=== PATIENT | female | born 2000 | race Caucasian/White ===

== ENCOUNTER 2021-06-17 09:47 | Outpatient (CLI) | payer MEDICAID, SELFPAY ==
--- NOTE | 2021-06-17 09:59 | US_ITS ---
WS: [id number] LIMITED OBSTETRICAL ULTRASOUND HISTORY: SUPERVISION NORMAL FIRST COMPARISON: None available. Presentation: Breech Cervix: Closed and normal length. Cervical length 4.2 cm. Placenta: Posterior, no previa or abruption. Placenta ends 2.4 cm above the internal cervical os. Grade: 0 HEART: FHR of 160 BPM. measurements: BPD = 3.6 cm = 17w0d HC = 13.8 cm = 17w1d AC = 11.0 cm = 16w6d FL = 2.2 cm = 16w5d Amniotic fluid: Normal. EFW: 170 g; %. AGA by ultrasound: 17w0d LAMIN by ultrasound: 11/25/2021 US/US OB limited [id number] IMPRESSION: 1. Single intrauterine gestation of 17 weeks 0 days with an EDC of 11/25/2021. 2. Posterior placenta.
== END 2021-06-17 09:48 | disposition home or self-care (01) ==
PROVIDERS: PCP Family Medicine; Visit Provider Family Medicine
DX: Z34.02 Encounter for supervision of normal first pregnancy, second trimester; Z3A.17 17 weeks gestation of pregnancy
CPT/HCPCS: 76815

== ENCOUNTER 2021-07-21 10:15 | Outpatient (CLI) | payer MEDICAID, SELFPAY ==
--- NOTE | 2021-07-21 10:26 | US_ITS ---
WS: [id number] OBSTETRICAL ULTRASOUND COMPLETE HISTORY: ANATOMY CHECK COMPARISON: 06/17/2021 Single intrauterine gestation in breech presentation. Cervix is Closed and normal length. Cervical length is 4.0 cm. Normal amount of amniotic fluid surrounds the fetus. Placenta: Posterior, no previa or abruption. Placenta grade 0 Heart: 147 BPM. Four chambers are identified. Outflow tracts are visualized but limited. No abnormali ty is detected. Fetus was very active for this examination. Anatomy: Intracranial structures and spine are normal. kidneys, stomach and urinary bladd er are unremarkable. Abdominal wall, three-vessel cord and cord insertion site are normal. 4 extremities are present. profile: Unremarkable. Gender: Male. measurements: BPD = 5.4 cm = 22w2d HC = 19.9 cm = 22w0d AC = 17.9 cm = 22w6d FL = 3.6 cm = 21w4d EFW: 486 g. Biometry is internally concordant. AGA by ultrasound: 22w0d LAMIN by ultrasound: 11/24/2021 US/US OB >= 14 weeks fetus [id number] IMPRESSION: 1. Single intrauterine gestation of 22w0d with an LAMIN of 11/24/2021. Appropria te growth since the prior ultrasound. 2. Unremarkable screening survey of anatomy. Limited evaluation of the h eart and outflow tracts due to active fetus. No abnormality identified.
== END 2021-07-21 10:16 | disposition home or self-care (01) ==
PROVIDERS: PCP Family Medicine; Visit Provider Family Medicine
DX: Z36.89 Encounter for other specified antenatal screening (principal)
CPT/HCPCS: 76805

== ENCOUNTER 2021-08-31 07:09 | Outpatient (CLI) | payer MEDICAID, SELFPAY ==
--- NOTE | 2021-08-31 07:17 | US_ITS ---
WS: [id number] ULTRASOUND OB FOCUSED HISTORY: SCREENING FOR CONGENITAL CARDIAC ABNORMALITIES COMPARISON: 07/21/2021 Single intrauterine gestation in cephalic position. Cervix is closed measuring 3.6 cm. Placenta is po sterior, no previa or abruption. Normal amniotic fluid. heart rate at 147 BPM. Four-chamber heart. Outflow tracts are better visualized today. No abnormality is identified. US/[place] [id number] IMPRESSION: 1. Follow-up imaging of the anatomy demonstrates no abnormality. 2. Normal cardiac activity.
== END 2021-08-31 07:10 | disposition home or self-care (01) ==
LOC: RAD 07:09
PROVIDERS: PCP Family Medicine; Visit Provider Family Medicine
DX: Z34.80 Encounter for supervision of other normal pregnancy, unspecified trimester (principal); Z36.83 Encounter for fetal screening for congenital cardiac abnormalities
CPT/HCPCS: 76816

== ENCOUNTER 2021-09-30 11:20 | Outpatient (CLI) | payer MEDICAID, SELFPAY ==
[2021-09-30 11:26] VITALS: BP 135/75; PULSE 114; RESP 18; TEMP 36.9
[2021-09-30 11:34] VITALS: BMI 40.0
[2021-09-30 11:40] VITALS: BP 135/75; PULSE 114; TEMP 36.9
[2021-09-30 11:54] VITALS: BP 132/71; PULSE 107
[2021-09-30 11:59] LABS: Add Urine Microscopic? NO; Charge for UA Resulting for Rev
[2021-09-30 12:04] LABS: Basophils % 0.1 %; Eosinophils # 0.1 10^3/uL (0.0-0.8); Eosinophils % 0.5 %; Hematocrit 34.9 % (37.0-47.0); Hemoglobin 12.3 g/dL (11.5-15.3); Lymphocytes # 2.2 10^3/uL (0.8-4.8); Lymphocytes % 16.2 %; Mean Corpuscular HGB Conc 35.2 g/dL (30.0-36.0); Mean Corpuscular Hemoglobin 30.2 pg (28.0-34.0); Mean Corpuscular Volume 85.7 fl (81-99); Mean Platelet Volume 11.2 fL (7.4-10.4); Monocytes # 0.6 10^3/uL (0.2-0.9); Monocytes % 4.5 %; Neutrophils # 10.52 10^3/uL (1.8-7.7); Neutrophils % 78.5 %; Nucleated Red Blood Cells % 0 %; Platelet Count 274 10^3/cmm (130-400); Red Blood Count 4.07 10^6/uL (4.1-5.3); Red Cell Distribution Width 11.9 % (12.1-15.1); White Blood Count 13.4 10^3/uL (4.0-10.0)
[2021-09-30 12:09] VITALS: BP 115/57; PULSE 100
[2021-09-30 12:18] LABS: Protein Urine Neg (Negative); Specific Gravity, Urine 1.025 (1.005-1.030); Urine Appearance Clear (CLEAR); Urine Color Yellow (Yellow); pH Urine 6 (5-7)
[2021-09-30 12:19] LABS: Bilirubin Urine Neg (Negative); Blood Urine Neg (Negative); Glucose Urine UA Norm (Normal); Ketones Urine 2+ (Negative); Leukocyte Esterase Urine Negative (Negative); Nitrate Urine Negative (Negative); Urobilinogen Urine 1 mg/dL (Negative)
[2021-09-30 12:24] VITALS: BP 100/57; PULSE 108
[2021-09-30 12:31] LABS: Alanine Aminotransferase 9 U/L (0-33); Alkaline Phosphatase 98 IU/L (35-105); Anion Gap 18.5 (5-19); Aspartate Amino Transferase 12 U/L (0-32); Blood Urea Nitrogen 10 mg/dL (6-20); Calcium 9.4 mg/dL (8.5-10.5); Carbon Dioxide 20 mmol/L (22-29); Chloride 100 mmol/L (98-107); Glomerular Filtration Rate 155.7 mL/min (90-130); Glucose 138 mg/dL (65-115); Osmolality Calculated 281 mOsm/kg (285-295); Potassium 3.5 mmol/L (3.5-5.1); Sodium 135 mmol/L (136-145); Total Bilirubin 0.2 mg/dL (0.15-1.2); Uric Acid 4.4 mg/dL (2.4-5.7)
[2021-09-30 12:36] LABS: Urine Creatinine 156 mg/dL (28-217); Urine Protein Random 15 mg/dL
[2021-09-30 12:39] VITALS: BP 90/53; PULSE 108
== END 2021-09-30 12:59 | disposition home or self-care (01) ==
LOC: OPOB 11:23 → OBGYN 11:24
PROVIDERS: PCP Family Medicine; Visit Provider Family Medicine
DX: O16.9 Unspecified maternal hypertension, unspecified trimester (principal); Z3A.00 Weeks of gestation of pregnancy not specified
CPT/HCPCS: 36415; 59025; 80053; 81003; 82570; 84156; 84550; 85025; 99211

== ENCOUNTER 2021-10-21 12:15 | Outpatient (CLI) | payer MEDICAID, SELFPAY ==
[2021-10-21 12:15] VITALS: BMI 41.1
[2021-10-21 12:23] VITALS: RESP 18; TEMP 36.5
[2021-10-21 12:30] VITALS: BP 128/64; PULSE 89
[2021-10-21 12:50] VITALS: BP 109/58; PULSE 97
[2021-10-21 13:05] LABS: Basophils % 0.2 %; Eosinophils # 0.1 10^3/uL (0.0-0.8); Eosinophils % 0.5 %; Hematocrit 36.8 % (37.0-47.0); Hemoglobin 12.5 g/dL (11.5-15.3); Lymphocytes # 2.1 10^3/uL (0.8-4.8); Lymphocytes % 16.2 %; Mean Corpuscular Hemoglobin 29.7 pg (28.0-34.0); Mean Corpuscular Volume 87.4 fl (81-99); Mean Platelet Volume 12.2 fL (7.4-10.4); Monocytes # 0.6 10^3/uL (0.2-0.9); Monocytes % 4.2 %; Neutrophils # 10.27 10^3/uL (1.8-7.7); Neutrophils % 78.6 %; Nucleated Red Blood Cells % 0 %; Platelet Count 284 10^3/cmm (130-400); Red Blood Count 4.21 10^6/uL (4.1-5.3); Red Cell Distribution Width 12.1 % (12.1-15.1); White Blood Count 13.1 10^3/uL (4.0-10.0)
[2021-10-21 13:10] VITALS: BP 115/70; PULSE 100
[2021-10-21 13:29] LABS: Alanine Aminotransferase 10 U/L (0-33); Alkaline Phosphatase 118 IU/L (35-105); Aspartate Amino Transferase 18 U/L (0-32); Blood Urea Nitrogen 11 mg/dL (6-20); Calcium 9.7 mg/dL (8.5-10.5); Carbon Dioxide 19 mmol/L (22-29); Chloride 101 mmol/L (98-107); Globulin 3.2 g/dL (1.3-4.6); Glomerular Filtration Rate 201.5 mL/min (90-130); Glucose 119 mg/dL (65-115); Osmolality Calculated 283 mOsm/kg (285-295); Sodium 136 mmol/L (136-145); Total Bilirubin 0.2 mg/dL (0.15-1.2); Total Protein 7.2 g/dL (6.6-8.7); Uric Acid 4.9 mg/dL (2.4-5.7)
[2021-10-21 13:30] VITALS: BP 122/68; PULSE 96
[2021-10-21 13:33] LABS: Anion Gap 19.6 (5-19); Potassium 3.6 mmol/L (3.5-5.1)
[2021-10-21 13:35] LABS: Add Urine Microscopic? YES; Bilirubin Urine Neg (Negative); Blood Urine Neg (Negative); Glucose Urine UA Norm (Normal); Ketones Urine 2+ (Negative); Leukocyte Esterase Urine 1+ (Negative); Nitrate Urine Negative (Negative); Protein Urine Neg (Negative); Specific Gravity, Urine 1.025 (1.005-1.030); Urine Appearance Cloudy (CLEAR); Urine Color Yellow (Yellow); Urobilinogen Urine 1 mg/dL (Negative); pH Urine 5 (5-7)
[2021-10-21 13:36] LABS: Add Urine Culture? Yes; Bacteria Urine 2+ /hpf; Squamous Epithelial Cell Urine 25-40 /hpf (0-5)
[2021-10-21 13:43] LABS: Urine Creatinine 183 mg/dL (28-217)
[2021-10-21 13:45] LABS: UPRO/UCREAT Ratio 0.15 mg/mg CR; Urine Protein Random 27 mg/dL
[2021-10-21 13:50] VITALS: BP 110/64; PULSE 88
== END 2021-10-21 14:05 | disposition home or self-care (01) ==
LOC: OPOB 12:19 → OBGYN 12:19
PROVIDERS: PCP Family Medicine; Visit Provider Family Medicine
DX: O16.9 Unspecified maternal hypertension, unspecified trimester (principal); Z3A.00 Weeks of gestation of pregnancy not specified
CPT/HCPCS: 36415; 59025; 80053; 81001; 82570; 84156; 84550; 85025; 87086; 99211

== ENCOUNTER 2021-10-31 12:00 | Inpatient (IN) | payer OTHER, MEDICAID, SELFPAY ==
[2021-10-31] VITALS (39 sets, daily range): BP systolic 104–161; BP diastolic 58–88; PULSE 72–105; RESP 18; TEMP 36.3; BMI 41.7
[2021-10-31] MEDS: dextrose 5%-lactated ringers 1,000 ML 125 ML IV (12:56)
[2021-10-31] MEDS: ampicillin 2,000 MG in sodium chloride 0.9% (plus) 50 ML 100 MG IV (12:57)
[2021-10-31] MEDS: ampicillin 1,000 MG in sodium chloride 0.9% (plus) 50 ML 100 MG IV ×2 (16:13→20:18)
[2021-10-31 17:59] LABS: Basophils % 0.3 %; Eosinophils # 0.1 10^3/uL (0.0-0.8); Eosinophils % 0.4 %; Hemoglobin 12.7 g/dL (11.5-15.3); Lymphocytes # 1.6 10^3/uL (0.8-4.8); Mean Corpuscular HGB Conc 33.4 g/dL (30.0-36.0); Mean Corpuscular Hemoglobin 29.2 pg (28.0-34.0); Mean Corpuscular Volume 87.4 fl (81-99); Mean Platelet Volume 12.8 fL (7.4-10.4); Monocytes # 0.7 10^3/uL (0.2-0.9); Monocytes % 5.8 %; Neutrophils # 9.62 10^3/uL (1.8-7.7); Neutrophils % 80.2 %; Nucleated Red Blood Cells % 0 %; Platelet Count 296 10^3/cmm (130-400); Red Blood Count 4.35 10^6/uL (4.1-5.3); Red Cell Distribution Width 12.2 % (12.1-15.1)
--- NOTE | 2021-10-31 18:25 | P.HP_ITS ---
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 Thought back pain was from sleeping on the couch last night. She reports normal movement, no LOF, no cramping, no vaginal bleeding. Good care. Taking vitamins and 81mg ASA for pre-eclampsia prev ention due to multiple moderate risk factors. Present Details : 1 Para: 0 Date of Last Menstrual Period: 02/20/21 Calculated Date of Delivery: 11/27/21 Gestational Age Based on Last Menstrual Period: 36 care: good care Other Details: 06/17/21 US: posterior placenta 2.4cm above internal os, grade0, IUP 17wk0d 07/22/21 US: Unremarkable anatomy, limited heart and outflow tracts due to activity, appropriate growth, normal amniotic fluid, posterior placenta 08/31/21 US: normal anatomy including normal outlow tracts 10/14/21 US: Weight 5lbs 4oz, symmetrical growth, CHRISTY 17, posterior placenta, cephalic, 34w3d measurement- done at [facility] Labs Blood type OB HPI: B (+) positive Rubella: Immune RPR: Negative GBS: Unknown Other Lab Information: Ab neg, Hep B neg, RPR NR, RI, HIV neg, Initial H/H 12.9/38.4, Pap NILM, GC/Chlam neg, UCx neg Repeat H/H 11.8/34.9 1hr GTT passed Review of Systems Const: Denies: fever(s) Card: Denies: chest pain Resp: Denies: dyspnea GI: Denies: abdominal pain : Reports: vaginal discharge; Denies: genital lesions, genital pruritis or vaginal bleeding Musc: Reports: back pain Medications/Allergies Home Medications Medication Instructions Recorded Confirmed Last Taken Type aspirin 81 mg chewable tablet 81 mg PO DAILY 09/30/21 09/30/2109/30/22 History prenat.vits,ascencion,[id number]-lecs-gbfxx 1 tab PO DAILY 09/30/21 09/30/21 09/30/21 History Allergies Allergy/AdvReac Type Severity Reaction Status Date / Time loratadine [From Claritin] Allergy ADR-Seizure Verified 09/30/21 11:57 PFSH 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 PFSH: Surgical History [place] teeth removed Social History Smoking and tobacco status: never smoked Alcohol intake: never Substance/Drug Use: never History History History 1 Term 0 0 Miscarriages/Ectopic 0 Living Children 0 Vitals/I&O/Wt Last Vital Signs Temp 97.3 F L 10/31/21 09:54 Pulse 72 10/31/21 17:49 Resp 18 10/31/21 13:11 BP 121/70 10/31/21 17:49 O2 Del Method 10/31/21 12:04 Weight last 48 hrs Weight 228 lb Physical Exam Const: COMMON NORMALS: no acute distress, healthy appearing, alert and well nourished Resp: COMMON NORMALS: normal respiratory effort : OTHER: Cervical exam per nursing 4/90/-3 at time of admission to 5100/-3 Noted vertex per nursing FHT baseline 130, mod variability, +accel, no decels, Category 1 FHT [place] irregular contractions q2-3 mins Data : 10/31/21 12:30 A&P Assessment and plan (1) labor: Admitted for labor at 36w1d per Dr. Valera. I have assumed care at this time. Category I FHT. Latent phase labor. Receiving GBS ppx due to GBS unknown status- GBS swab sent. IVF at 125cc/hr, CBC drawn and resulted. EFM intermittent if remains Category I. Anticipate . Status: Acute Attestations Medical Necessity Statement*: Mary Ann Alston's hospital stay will require greater than 2 midnights for labor. Coding Level of Care Code Acute Muffler Mechanic for [facility] Fwd Diagnoses labor O60.00
[2021-11-01] VITALS (12 sets, daily range): BP systolic 105–137; BP diastolic 58–81; PULSE 65–91; RESP 17; TEMP 36.2
[2021-11-01] MEDS: ampicillin 1,000 MG in sodium chloride 0.9% (plus) 50 ML 100 MG IV ×4 (00:24→11:59)
--- NOTE | 2021-11-01 18:06 | P.DS_ITS ---
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 Initially complained of back pain and loss of mucous plug. Started on GBS ppx for GBS unknown. Observed over period of approximately 32 hours with no p rogressive dilation. Contractions stopped and cervical exam prior to discharge 70/-4. Membranes intact. Back pain resolved. Discussed extensively strict precautions for return to L&D including but not limited to vaginal bleeding, LOF, contractions, back pain, decreased movement. Discussed and offered corticosteroids- discussed risks and benefits- patient declines. Physical Exam Const: COMMON NORMALS: no acute distress, healthy appearing and alert Resp: COMMON NORMALS: normal respiratory effort : OTHER: SVE 470/-4, soft, anterior Extremity: COMMON NORMALS: no clubbing, cyanosis or edema Neuro: SENSORIUM/ORIENTATION: Yes alert Psych: COMMON NORMALS: cooperative, normal affect and speech normal SPEECH: Yes normal speech Skin: COMMON NORMALS: no rashes or lesions noted GENERAL SKIN EXAM: no rashes or lesions noted History History History 1 Term 0 0 Miscarriages/Ectopic 0 Living Children 0 Other History: 06/17/21 US: posterior placenta 2.4cm above internal os, grade0, IUP 17wk0d 07/22/21 US: Unremarkable anatomy, limited heart and outflow tracts due to activity, appropriate growth, normal amniotic fluid, posterior placenta 08/31/21 US: normal anatomy including normal outlow tracts 10/14/21 US: Weight 5lbs 4oz, symmetrical growth, CHRISTY 17, posterior placenta, cephalic, 34w3d measurement- done at [facility] Data Studies Completed and Pending Pending at discharge Category Date Time Status Group B Streptococcus Culture Routine Lab 10/31/21 10:40 Received Laboratory Results WBC 12.0 10^3/uL (4.0-10.0) H 10/31/21 12:30 RBC 4.35 10^6/uL (4.1-5.3) 10/31/21 12:30 Hgb 12.7 g/dL (11.5-15.3) 10/31/21 12:30 Hct 38.0 % (37.0-47.0) 10/31/21 12:30 MCV 87.4 fl (81-99) 10/31/21 12:30 MCH 29.2 pg (28.0-34.0) 10/31/21 12: MCHC 33.4 g/dL (30.0-36.0) 10/31/21 12: RDW 12.2 % (12.1-15.1) 10/31/21 12:30 Plt Count 296 10^3/cmm (130-400) 10/31/21 12:30 MPV 12.8 fL (7.4-10.4) H 10/31/21 12:30 Neut % (Auto) 80.2 % 10/31/21 12:30 Lymph % (Auto) 13.0 % 10/31/21 12:30 [place] % (Auto) 5.8 % 10/31/21 12:30 Eos % (Auto) 0.4 % 10/31/21 12:30 Baso % (Auto) 0.3 % 10/31/21 12:30 Neut # (Auto) 9.62 10^3/uL (1.8-7.7) H 10/31/21 12:30 Lymph # (Auto) 1.6 10^3/uL (0.8-4.8) 10/31/21 12:30 [place] # (Auto) 0.7 10^3/uL (0.2-0.9) 10/31/21 12:30 Eos # (Auto) 0.1 10^3/uL (0.0-0.8) 10/31/21 12:30 Baso # (Auto) 0.0 10^3/uL (0.0-0.1) 10/31/21 12:30 Nucleated RBC % (auto) 0 % 10/31/21 12:30 Nucleated RBCs # 0.0 /100WBC 10/31/21 12:30 Vitals Last Vital Signs Temp 97.2 F L 11/01/21 11:37 Pulse 85 11/01/21 17:20 Resp 17 11/01/21 11:37 BP 117/69 11/01/21 17:20 O2 Del Method 10/31/21 12:04 Discharge Plan Discharge Patient Disposition: Home Condition: Fair Prescriptions: Continued aspirin 81 mg Tablet,Chewable 81 mg PO DAILY prenat.vits,ascencion,tja-dvje-zaszv Tablet 1 tab PO DAILY Discharge Orders: Discharge Order (Routine); Ordered 11/01/21 Ordered By: Sophia Gomes Discharge Diet: Usual diet Discharge Activity: Limit activity as instructed Patient Instructions: Labor (GEN), OB Undelivered Discharge Activity Restrictions/Additional Instructions: Follow-up in clinic tomorrow 11/02/[address] Gomes. 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
== END 2021-11-01 19:18 | disposition home or self-care (01) | DRG 833 ==
LOC: OPOB 12:04 → OBGYN 12:04
PROVIDERS: Admitting Provider Family Medicine; PCP Family Medicine; Visit Provider Family Medicine
DX: O60.03 Preterm labor without delivery, third trimester (principal); Z3A.36 36 weeks gestation of pregnancy; O99.213 Obesity complicating pregnancy, third trimester
CPT/HCPCS: 12345; 36415; 59025; 85025; 87081; 99211; J0290

== ENCOUNTER 2021-11-06 21:08 | Inpatient (IN) | payer OTHER, MEDICAID, SELFPAY ==
[2021-11-04] VITALS (30 sets, daily range): BP systolic 106–146; BP diastolic 57–92; PULSE 75–112; RESP 16; TEMP 36.4–36.7; BMI 42.0
[2021-11-04 14:49] LABS: Basophils % 0.2 %; Eosinophils # 0.1 10^3/uL (0.0-0.8); Eosinophils % 0.7 %; Hematocrit 37.6 % (37.0-47.0); Hemoglobin 12.5 g/dL (11.5-15.3); Lymphocytes # 1.5 10^3/uL (0.8-4.8); Lymphocytes % 14.2 %; Mean Corpuscular HGB Conc 33.2 g/dL (30.0-36.0); Mean Corpuscular Hemoglobin 29.1 pg (28.0-34.0); Mean Corpuscular Volume 87.4 fl (81-99); Mean Platelet Volume 12.3 fL (7.4-10.4); Monocytes # 0.5 10^3/uL (0.2-0.9); Monocytes % 4.7 %; Neutrophils # 8.31 10^3/uL (1.8-7.7); Nucleated Red Blood Cells % 0 %; Platelet Count 276 10^3/cmm (130-400); Red Cell Distribution Width 12.3 % (12.1-15.1); White Blood Count 10.4 10^3/uL (4.0-10.0)
[2021-11-04 14:54] LABS: Urine Appearance Hazy (CLEAR); Urine Color Yellow (Yellow); pH Urine 6 (5-7)
[2021-11-04 14:55] LABS: Add Urine Microscopic? YES; Bilirubin Urine Neg (Negative); Blood Urine Neg (Negative); Glucose Urine UA Norm (Normal); Ketones Urine 1+ (Negative); Leukocyte Esterase Urine 1+ (Negative); Nitrate Urine Negative (Negative); Protein Urine Trace (Negative); Urobilinogen Urine Norm (Negative)
[2021-11-04 14:57] LABS: Add Urine Culture? No; RBC Urine 0-4 /hpf (0-2); Squamous Epithelial Cell Urine 15-25 /hpf (0-5); WBC Urine 25-40 /hpf (0-5)
[2021-11-04 15:08] LABS: UPRO/UCREAT Ratio 0.19 mg/mg CR; Urine Creatinine 227 mg/dL (28-217); Urine Protein Random 42 mg/dL
[2021-11-04 15:47] LABS: Alanine Aminotransferase 9 U/L (0-33); Albumin Level 3.4 g/dL (3.5-5.2); Alkaline Phosphatase 128 U/L (35-105); Aspartate Amino Transferase 13 U/L (0-32); Blood Urea Nitrogen 11 mg/dL (6-20); Carbon Dioxide 23 mmol/L (22-29); Chloride 98 mmol/L (98-107); Globulin 3.5 g/dL (1.3-4.6); Glomerular Filtration Rate 90.5 mL/min (90-130); Glucose 104 mg/dL (65-115); Osmolality Calculated 276 mOsm/kg (285-295); Sodium 133 mmol/L (136-145); Total Bilirubin 0.2 mg/dL (0.15-1.2); Total Protein 6.9 g/dL (6.6-8.7); Uric Acid 5.7 mg/dL (2.4-5.7)
[2021-11-04 15:52] LABS: Anion Gap 15.9 (5-19); Potassium 3.9 mmol/L (3.5-5.1)
--- NOTE | 2021-11-04 17:45 | P.HP_ITS ---
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 Initially started intermittently and now has worsened and become constant. Does report intermittent worsening of back pain. She reports normal movement, no LOF, no vaginal bleeding. Good care. Taking vitamins and 81mg ASA for pre-eclampsia prevention due to multiple moderate risk factors. Present Details : 1 Para: 0 Date of Last Menstrual Period: 02/20/21 Calculated Date of Delivery: 11/27/21 Gestational Age Based on Last Menstrual Period: 36 care: good care Other Details: 06/17/21 US: posterior placenta 2.4cm above internal os, grade0, IUP 17wk0d 07/22/21 US: Unremarkable anatomy, limited heart and outflow tracts due to activity, appropriate growth, normal amniotic fluid, posterior placenta 08/31/21 US: normal anatomy including normal outlow tracts 10/14/21 US: Weight 5lbs 4oz, symmetrical growth, CHRISTY 17, posterior placenta, cephalic, 34w3d measurement- done at [facility] Labs Blood type OB HPI: B (+) positive Rubella: Immune RPR: Negative GBS: Unknown Other Lab Information: Ab neg, Hep B neg, RPR NR, RI, HIV neg, Initial H/H 12.9/38.4, Pap NILM, GC/Chlam neg, UCx neg Repeat H/H 11.8/34.9 1hr GTT passed GBS negative Review of Systems Const: Denies: fever(s) or chills Card: Denies: chest pain or swelling of feet/ankles Resp: Denies: dyspnea Medications/Allergies Home Medications Medication Instructions Recorded Confirmed Last Taken Type aspirin 81 mg chewable tablet 81 mg PO DAILY 09/30/21 09/30/21 09/30/21 History prenat.vits,ascencion,jyg-lyju-gkuay 1 tab PO DAILY 09/30/21 09/30/21 09/30/21 History Allergies Allergy/AdvReac Type Severity Reaction Status Date / Time loratadine [From Claritin] Allergy ADR-Seizure Verified 09/30/21 11:57 PFSH COTTAGE ATTENDANT PFSH: Surgical History [place] teeth removed Social History Smoking and tobacco status: never smoked Alcohol intake: never History History History 1 Term 0 0 Miscarriages/Ectopic 0 Living Children 0 Vitals/I&O/Wt Last Vital Signs Temp 97.5 F L 11/04/21 13:32 Pulse 99 11/04/21 17:42 BP 138/91 11/04/21 17:42 Physical Exam Const: COMMON NORMALS: no acute distress, no limitations, healthy appearing and alert Resp: COMMON NORMALS: normal respiratory effort and clear to auscultation bilaterally Cardio: COMMON NORMALS: regular rate, regular rhythm, S1 normal heart sound present, S2 normal heart sound present and No murmurs present (Cardio) : OTHER: SVE 6.5/95/-3, midposition, soft FHT baseline 135, mod gino, + accels, no decels- category 1 FHT [place]: 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 Category I FHT. IVF at 125cc/hr. Epidural if desired. NPO with ice chips. Routine care. Expectant management at this time. Anticipate . Status: Acute (2) Gestational hypertension: With elevated BP today meets criteria for gestational HTN. Urine protein/Cr eatinine ratio wnl, no severe features. Vital signs per protocol. Status: Acute Attestations Medical Necessity Statement*: Mary Ann Alston's hospital stay will require greater than 2 midnights for labor. Coding Level of Care Code Acute Police Commissioner for Chg Fwd Exam Problem Focused Diagnoses labor O60.00 Gestational hypertension O13.9
[2021-11-04] MEDS: dextrose 5%-lactated ringers 1,000 ML 125 ML IV (20:54)
[2021-11-04] MEDS: oxytocin 30 UNIT/500 ML BAG IV (20:54)
[2021-11-05] VITALS (38 sets, daily range): BP systolic 101–136; BP diastolic 51–93; PULSE 57–88; RESP 14–19; TEMP 35.9–36.4
[2021-11-05] MEDS: fentaNYL 50 mcg/mL INJ 2mL 25 MCG IVP (03:45)
[2021-11-05] MEDS: dextrose 5%-lactated ringers 1,000 ML 125 ML IV ×3 (04:40→23:46)
--- NOTE | 2021-11-05 09:05 | ANES.PREANE2 ---
Pre-Anesthetic Assessment Height/Weight: Height 1.57 m Weight 104.326 kg Temp Pulse Resp BP O2 Del Method 97.6 F 69 19 H 117/77 11/05/21 19:15 11/05/21 10:44 11/05/21 23:15 11/05/21 10:44 11/04/21 17:30 Preop Diagnosis: IUP epidural Familial anesthetic complications: none Was Beta Dominique taken within 24 hours: N/A Was Clonidine taken within 24 hours: N/A Last intake: clears Social No alcohol and No tobacco Exam alert and oriented x 3 Airway Submandibular: within normal limits Cervical ROM: within normal limits Mallampati: Class III Dentition: full History/ROS No significant history except as noted Pulmonary None reported CV/HEM Hypertension (gestational only) None reported Hepatic None reported GI Gastroesophageal Reflux Disease Metabolic Morbid Obesity [facility] None reported Neuropsych 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) Anesthetic Plan ASA status: 3 Anesthesia: Anesthesia Evaluation and Regional (specify below) Risk of > 500 ml blood loss (7ml/kg in children): No Medications/Allergies Home Medications Medication Instructions Recorded Confirmed Last Taken Type aspirin 81 mg chewable tablet 81 mg PO DAILY 09/30/21 09/30/21 11/04/21 09:00 History prenat.vits,ascencion,dvd-bksg-bsipq 1 tab PO DAILY 09/30/21 09/30/21 11/04/21 09:00 History Allergies Allergy/AdvReac Type Severity Reaction Status Date / Time loratadine [From Claritin] Allergy ADR-Seizure Verified 09/30/21 11:57 Current Medications Generic Name Dose Route Start Last Admin Trade Name [place] PRN Reason Stop Dose Admin Dextrose/Lactated Ringer's 1,000 mls @ 125 mls/hr 11/04/21 18:00 11/05/21 23:46 Dextrose 5%-Lactated Ringers IV 125 mls/hr .Q8H MANUEL Administration Oxytocin 30 unit in 500 mls @ 1 mls/hr 11/04/21 20:45 11/05/21 19:05 Pitocin IV 11 milliunit/min .Q24H MANUEL 11 mls/hr Titration Protocol 1 MILLIUNIT/MIN Misoprostol 25 mcg 11/05/21 22:01 11/05/21 23:19 Misoprostol 100 Mcg Tablet VAGINAL 25 mcg Q4H PRN Administration labor induction PFSH Anesthesia Surgical History [place] teeth removed Social History Smoking and tobacco status: never smoked Alcohol intake: never Female Reproductive History Date of last menstrual period: 02/20/21 : 1 Data Anesthesia : 11/04/21 14:30 11/04/21 15:07 Short CBC 11/04/21 Range/Units 14:30 WBC 10.4 H (4.0-10.0) 10^3/uL Hgb 12.5 (11.5-15.3) g/dL Hct 37.6 (37.0-47.0) % MCV 87.4 (81-99) fl Plt Count 276 (130-400) 10^3/cmm Neut % (Auto) 80.0 % Neut # (Auto) 8.31 H (1.8-7.7) 10^3/uL BMP 11/04/21 11/04/21 14:30 15:07 Sodium Cancelled 133 L Potassium Cancelled 3.9 Chloride Cancelled 98 Carbon Dioxide Cancelled 23 BUN Cancelled 11 Creatinine Cancelled 0.8 Glucose Cancelled 104 Calcium Cancelled 9.0 Liver Function 11/04/21 11/04/21 Range/Units 14:30 15:07 Total Bilirubin Cancelled 0.2 AST Cancelled 13 ALT Cancelled 9 Alkaline Phosphatase Cancelled 128 H Albumin Cancelled 3.4 L Urine 11/04/21 Range/Units 14:30 Urine Color Yellow (Yellow) Urine Appearance Hazy A (CLEAR) Urine pH 6 (5-7) Ur Specific [place] 1.020 (1.005-1.030) Urine Protein Trace (Negative) Urine Glucose (UA) Norm (Normal) Urine Ketones 1+ H (Negative) Urine Nitrate Negative (Negative) Urine Bilirubin Neg (Negative) Ur Leukocyte Esterase 1+ H (Negative) Urine RBC 0-4 H (0-2) /hpf Urine WBC 25-40 H (0-5) /hpf Cardiac Studies: No Data to Display
[2021-11-05] MEDS: oxytocin 30 UNIT/500 ML BAG IV (17:47)
--- NOTE | 2021-11-05 21:35 | P.PN_ITS ---
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 Still having back pain and hip pain- similar or slightly improved from admission. Denies VB, LOF, cramping/contractions. Normal movement. No new onset HAs, vision change, leg swelling, abdominal pain. Labor: Pain Control: tolerating well Dilation (cm): 7 Effacement (%): 90 Station: -3 Amniotic Membrane Status: Intact Monitor Mode: External Contraction Pattern: Occasional Contraction Intensity: Mild Status: Category I (baseline 130, mod variability, + accel, no decels ) Vitals/I&O/Wt Last Vital Signs Temp 96.6 F L 11/05/21 10:00 Pulse 69 11/05/21 10:44 Resp 14 11/05/21 18:00 BP 117/77 11/05/21 10:44 O2 Del Method 11/04/21 17:30 11/05/21 11/05/21 11/05/21 06:59 14:59 22:59 Intake Total 1050.333 / 2701.365 8356.200 / 1063.200 114.999 / 1178.199 Balance 1050.333 / 6457.412 8923.200 / 1063.200 114.999 / 1178.199 Weight last 48 hrs Weight 230 lb Physical Exam Const: COMMON NORMALS: no acute distress, patient oriented x3, healthy appearing and well nourished GENERAL APPEARANCE: cooperative and comfortable Resp: COMMON NORMALS: normal respiratory effort Extremity: COMMON NORMALS: no pedal edema Neuro: COMMON NORMALS: patient oriented x3 Data : 11/04/21 14:30 11/04/21 15:07 A&P Assessment and plan (1) labor: 21yo at 36w6d admitted for labor. Minimal cervical change throughout the day however with advanced dilation at 7/90/-3, ballotable on exam per report and earlier exam today. Contraction pattern has been irregular and patient not feeling contractions. Pitocin has been titrated up to 20 throughout the day and has been ineffective for cervical change. Discussed management options with patient including no intervention, increase of pitocin, or cytotec. Discussed with ballotable SVE, AROM not preferred at this time. Discussed risks and benefits. Patient prefers trial of cytotec. Discussed risks including but not limited to uterine tachysystole, intolerance, uterine rupture and discussed off-label use. Patient agrees to proceed. Stop pitocin. Dose cytotec in 2 hours. Continue IVF 125cc/hr. GBS neg- no ppx necessary. Continue EFM. Patient may eat prior to cytotec placement. May have epidural if desired. Anticipate . Status: Acute (2) Gestational hypertension: Few mild range BPs, no new sx. Continue vital signs per protocol. Status: Acute Attestations Medical Necessity Statement*: Mary Ann Alston's hospital stay will require greater than 2 midnights for labor. Coding Level of Care Code Acute Post Tronic Machine Operator for Chg Fwd Diagnoses labor O60.00 Gestational hypertension O13.9
[2021-11-05] MEDS: miSOPROStol 100 mcg tablet 25 MCG VAGINAL (23:19)
[2021-11-06] VITALS (16 sets, daily range): BP systolic 97–158; BP diastolic 61–82; PULSE 71–87; RESP 15–18; TEMP 36.2–36.5
[2021-11-06] MEDS: miSOPROStol 100 mcg tablet 25 MCG VAGINAL (04:14)
--- NOTE | 2021-11-06 16:30 | PM.OBGYPN ---
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 Feeling well. Better after getting some rest and eating. No new sx. Thinks she maybe was feeling contractions prior but having trouble distinguishing between movement and contractions. Denies VB, LOF, cramping/contractions. Normal movement. Labor: Dilation (cm): 7 Effacement (%): 90 Station: -3 Amniotic Membrane Status: Intact Monitor Mode: External Contraction Pattern: Absent Contraction Intensity: Mild Status: Category I (baseline 130, mod variability, + accel, no decels ) Vitals/I&O/Wt Last Vital Signs Temp 97.7 F 11/06/21 11:30 Pulse 81 11/06/21 19:57 Resp 15 11/06/21 11:30 BP 116/77 11/06/21 19:57 O2 Del Method 11/04/21 17:30 11/06/21 11/06/21 11/06/21 06:59 14:59 22:59 Intake Total 1000 / 1000 Balance 1000 / 1000 Physical Exam Const: COMMON NORMALS: no acute distress, patient oriented x3, healthy appearing and well nourished GENERAL APPEARANCE: cooperative and comfortable Resp: COMMON NORMALS: normal respiratory effort : OTHER: SVE /-3, midposition, ballotable per report NST reactive Extremity: COMMON NORMALS: no pedal edema Neuro: COMMON NORMALS: patient oriented x3 Data : 11/04/21 14:30 11/04/21 15:07 A&P Assessment and plan (1) labor: 21yo at 37w0d admitted for labor on 11/04/21. Now term gestation. Minimal cervical change since admission however with advanced dilation at 790/-3, ballotable on exam per report and personal exam repeatedly. No change after 2 doses cytotec overnight. Due to maternal fatigue and no meaningful contractions plan to hold further intervention at this time. Patient may eat, ambulate, shower as desired. NST q2hr until evening and then qshift NST as long as reactive and no new patient symptoms. Reassess in AM. Status: Acute (2) Gestational hypertension: BPs wnl today, no new sx. Continue vital signs per protocol. Status: Acute Attestations Medical Necessity Statement*: Mary Ann R Brazeal's hospital stay will require greater than 2 midnights for labor. Coding Level of Care Code Acute Staff Command And Control Officer for Chg Fwd Diagnoses labor O60.00 Gestational hypertension O13.9
[2021-11-07] VITALS (19 sets, daily range): BP systolic 94–129; BP diastolic 56–93; PULSE 47–103; RESP 16; TEMP 36–36.6
--- NOTE | 2021-11-07 17:02 | PM.OBGYPN ---
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 Has been up and ambulating, however. Denies VB, LOF, cramping. Normal movement. Reports approx 5 minutes ago perceived abdominal pain coming and going however she is unsure if it is movement or contractions. Reports small amount of LE swelling since she has been up and around. Labor: Dilation (cm): 7 Effacement (%): 90 Station: -3 Amniotic Membrane Status: Intact Monitor Mode: External Contraction Pattern: Rare Contraction Intensity: Mild Status: Category I (baseline 130, mod variability, + accel, no decels ) Vitals/I&O/Wt Last Vital Signs Temp 97.7 F 11/06/21 11:30 Pulse 103 H 11/07/21 15:12 Resp 16 11/07/21 13:00 BP 113/73 11/07/21 15:12 O2 Del Method 11/04/21 17:30 Physical Exam Const: COMMON NORMALS: no acute distress, patient oriented x3, healthy appearing and well nourished GENERAL APPEARANCE: cooperative and comfortable Resp: COMMON NORMALS: normal respiratory effort : OTHER: SVE 7/90/-3, midposition, ballotable per exam at 7:30 am today NST reactive Extremity: NARRATIVE EXTREMITY EXAM: trace pedal edema BLE, 2+ pedal pulses Neuro: COMMON NORMALS: patient oriented x3 Data : 11/04/21 14:30 11/04/21 15:07 A&P Assessment and plan (1) labor: 21yo at 37w1d admitted for labor on 11/04/21. Now term gestation. Minimal cervical change since admission however with advanced dilation at 7/90/-3, ballotable on exam per report and personal exam repeatedly. Discussed further management with patient. Due to advance dilation unable to discharge home. Plan for cytotec 25mcg at approx 6pm. Recheck in 4 hours. Resume IVF. NST prior to cytotec placement then continuous EFM. Status: Acute (2) Gestational hypertension: BPs wnl today, no new significant sx. Continue vital signs per protocol. Status: Acute Attestations Medical Necessity Statement*: Mary Ann Alston's hospital stay will require greater than 2 midnights for labor. Coding Level of Care Code Acute Advanced Practice Professional for g Fwd Diagnoses labor O60.00 Gestational hypertension O13.9
[2021-11-07] MEDS: miSOPROStol 100 mcg tablet 25 MCG VAGINAL (18:14)
[2021-11-07] MEDS: oxytocin 30 UNIT/500 ML BAG IV (23:31)
[2021-11-07] MEDS: dextrose 5%-lactated ringers 1,000 ML 125 ML IV (23:33)
[2021-11-08] VITALS (63 sets, daily range): BP systolic 95–181; BP diastolic 54–133; PULSE 61–116; RESP 16; TEMP 30.8–36.4; O2SAT 98–99
[2021-11-08] MEDS: acetaminophen 325 mg Tablet 650 MG PO (06:20)
[2021-11-08] MEDS: dextrose 5%-lactated ringers 1,000 ML 125 ML IV (07:12)
[2021-11-08] MEDS: lactated ringers 1,000 ML 999 ML IV (09:01)
--- NOTE | 2021-11-08 09:15 | P.ANESUD_ITS ---
Pre-Anesthetic Update Pre-Anesthetic Assessment: Date of Surgery/Procedure: 11/08/21 Preop Nehal gnosis: IUP Proposed Procedure: epidural Any changes to Pre-Anesthetic Assessment?: No Vitals: Temperature 97.8 F 11/07/21 19:56 Temperature Source Temporal Artery S can 11/07/21 19:56 Pulse Rate 83 11/08/21 09:42 Pulse Rhythm 11/07/21 08:00 Pulse Strength 3+ Normal 11/07/21 08:00 Respiratory Rate 16 11/07/21 13:00 Respiratory Effort Non-Labored 11/07/21 08:00 Respiratory Depth Normal 11/07/21 08:00 Respiratory Patter n 11/07/21 08:00 Blood Pressure 126/59 11/08/21 09:42 Blood Pressure Debora n 73 11/06/21 11:30 Blood Pressure Pos ition Supine 11/06/21 11:30 Pulse Oximetry 99 11/08/21 09:40 Oxygen Delivery Me thod 11/04/21 17:30 Exam: Pre-Anes Outpt Exam: alert, oriented x 3, clear to auscultation bilaterally and regular rate & rhythm Cardiac Studies: No Data to Display
--- NOTE | 2021-11-08 09:47 | P.ANES_ITS ---
Anesthesia Procedures Procedure/Date: 11/08/21 Epidural: Time Out Performed: Yes Consents Signed: Procedure Consent Consent: from patient, risks and benefits reviewed and patient agrees to proceed Lumbar Level: L3-L4 Epidural position: sitting Epidural procedure: sterile prep of area, 1% lidocaine to numb the area, 18 g needle, negative for p aresthesia passed, test dose given, 1.5% xylocaine 1:200k epi, placed PCEA, no systemic response, sterile dressing applied, L.U.D. no apparent complications and 0.2% Ropiavacaine @ mls/hr (11) Additional Comments: SURJIT at 7.5 taped at 14 at skin. neg blood/CSF aspiration
[2021-11-08] MEDS: lactated ringers 1,000 ML 30 ML IV (16:33)
[2021-11-08] MEDS: ondansetron 2 mg/ML SDV 2 mL 4 MG IVP (17:10)
[2021-11-08] MEDS: lidocaine 2% INJ 20 mL INJECTION (17:43)
[2021-11-08] MEDS: oxytocin 30 UNIT/500 ML BAG 999 UNIT IV (17:50)
[2021-11-08] MEDS: miSOPROStol 200 mcg Tablet 600 MCG SUBLINGUAL (17:51)
--- NOTE | 2021-11-08 18:31 | P.PCNOB_ITS ---
Delivery Note: Date of delivery: November 08, 2021 Pre-delivery diagnoses: labor Gestational hypertension Post-delivery diagnoses: labor with Term delivery Prolonged second stage labor Gestational hypertension Procedure: Vacuum Assisted Vaginal Delivery Delivering Physician: Sophia Gomes DO Estimated blood loss (mL): 450 Findings: Term delivery of viable male Prolonged second stage labor Pre-Delivery Course: Patient admitted on 11/04/21 for labor. Progressed with pitocin augmentation to /-3 with then arrest of dilation. Following given 2 doses cytotec without progressive dilation or increase in contractions. FHT remained Category 1 and with no immediate indication for delivery given rest period. On 11/07/21 at approx 6pm given dose cytotec with progressive dilation to /-3 noted. Started on low-dose pitocin following with initiation of regular contractions. AROM at approx 0730 on 11/08/21. Delivery: Patient progressed to complete. Patient placed in lithotomy position. Patient pushed with good but ultimately inadequate effort. After approx 4 hours in second stage of labor and slow progression to +3 station discussed vacuum assisted delivery. At this time patient declined vacuum after discussion of risks and benefits. Per patient preference continued with active pushing with FHT remaining Category 1 throughout. After approx 2 additional hours in second stage of labor with progression to +5 station, patient agreed to vacuum assisted delivery due to maternal fatigue. FHT continued to be Category 1. Vacuum applied and head delivered in TIMI position on second pull after 1 pop- off and total vacuum application time <10 minutes. Nuchal cord was present and reduced. Shoulders and rest of body delivered- body cord reduced-without difficulty over epidural anesthesia. Mouth and nares bulb suctioned. Cord clamped and cut after 1 minute delay. Infant placed on maternal abdomen. Placenta spontaneously delivered spontaneously and intact. Pitocin started after delivery of . Fundus noted to be moderately firm with boggy lower uterine segment. Noted to have moderate bleeding. Given 600 mcg cytotec sublingual and initiated bimanual massage. 2nd bag of 30 units pitocin given. Bleeding noted to decrease. The vagina and cervix were inspected and two 1st degree bilateral v aginal sulcus lacerations were noted. Right 1st degree lesion noted to be bleeding- repaired with 3-0 vicryl and 2% lidocaine for anesthesia of approx 6ml with adequate hemostasis noted following. Uterine fundus was noted to be firm and bleeding noted to stop. Male born at 17:21 with Apgars 7/8 weighing 7lbs 1oz and measuring 20.75 inches in length Placenta noted to be intact with centrally inserted umbilical cord. Complications: Maternal none none History History History 1 Term 0 0 Miscarriages/Ectopic 0 Living Children 0 Other History: Coding Level of Care Code Acute Lube Attendant for Kayla Chambers
[2021-11-08] MEDS: benzocaine-menthol 78 gm Canister 1 SPRAY TOPICAL (22:05)
[2021-11-08] MEDS: ibuprofen 800 mg tablet PO (22:06)
[2021-11-08] MEDS: lanolin oint 7 gm 1 APPLIC TOPICAL (22:06)
[2021-11-09] VITALS (7 sets, daily range): BP systolic 113–136; BP diastolic 72–97; PULSE 80–112; RESP 16–18; TEMP 36.6–36.7; O2SAT 97–98
[2021-11-09 06:48] LABS: Hematocrit 27.9 % (37.0-47.0); Mean Corpuscular HGB Conc 32.3 g/dL (30.0-36.0); Mean Corpuscular Hemoglobin 28.8 pg (28.0-34.0); Mean Corpuscular Volume 89.1 fl (81-99); Mean Platelet Volume 12.2 fL (7.4-10.4); Platelet Count 203 10^3/cmm (130-400); Red Blood Count 3.13 10^6/uL (4.1-5.3); Red Cell Distribution Width 12.6 % (12.1-15.1); White Blood Count 10.7 10^3/uL (4.0-10.0)
--- NOTE | 2021-11-09 07:30 | P.PN_ITS ---
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 Doing well. Ambulating, voiding well. Pain well controlled with current pain medication. Tolerating normal diet. exclusively with good latch using nipple shield. Denies calf pain. Vaginal bleeding minimal- less than a period- passing small clots. Labor: Dilation (cm): 7 Effacement (%): 90 Station: +3 Amniotic Membrane Status: Ruptured Monitor Mode: Palpation Contraction Pattern: Regular Contraction Intensity: Mild Status: Category I Post /CS: baby status: doing well and nursing well [place] feeding status: exclusively breast feeding Vitals/I&O/Wt Last Vital Signs Temp 98.1 F 11/09/21 16:00 Pulse 112 H 11/09/21 16:00 Resp 16 11/09/21 16:00 BP 130/76 11/09/21 16:00 Pulse Ox 97 11/09/21 16:00 O2 Del Method 11/09/21 16:00 Physical Exam Const: COMMON NORMALS: no acute distress, patient oriented x3, healthy appearing and well nourished GENERAL APPEARANCE: cooperative and comfortable Resp: COMMON NORMALS: normal respiratory effort and clear to auscultation bilaterally AUSCULTATION: clear to auscultation bilaterally Cardio: COMMON NORMALS: regular rate, regular rhythm, S1 normal heart sound present, S2 normal heart sound present and Peripheral pulses 2+ throughout RATE: regular rate RHYTHM: regular rhythm HEART SOUNDS: S1 normal heart sound present and S2 normal heart sound present PERIPHERAL PULSES: Peripheral pulses 2+ throughout GI: COMMON NORMALS: Soft to palpation and non-tender PALPATION: Yes Soft to palpation : OTHER: Uterine fundus firm and below umbilicus Extremity: COMMON NORMALS: normal to inspection, no calf tenderness and no pedal edema Neuro: COMMON NORMALS: patient oriented x3 Data : 11/09/21 06:30 11/04/21 15:07 A&P Assessment and plan (1) Vacuum-assisted vaginal delivery: PPD#1 s/p vacuum assisted vaginal delivery. Hgb with drop from admission however with decreasing vaginal bleeding since delivery. Assess in AM for need for repeat H/H. Continue routine care- regular diet, encourage ambulation, showering. Continue scheduled ibuprofen. Tylenol PRN. well. Anticipate discharge tomorrow. Status: Acute (2) Gestational hypertension: BPs wnl. Continue routine vital signs. Status: Acute Attestations Medical Necessity Statement*: Mary Ann Villarreal Gamaliel's hospital stay will require greater than 2 midnights for labor followed by vacuum assisted vaginal delivery. Coding Level of Care Code Acute Softball Core Molder for Chg Fwd Diagnoses Vacuum-assisted vaginal delivery Z37.9 Gestational hypertension O13.9
--- NOTE | 2021-11-09 08:11 | ANE.PACU2 ---
Inpatient post-anesthesia follow up: Airway intact: Yes Vital signs: Temperature 97.5 F Pulse Rate 80 Respiratory Rate 16 Blood Pressure 119/72 Pulse Oximetry 98 Oxygen Delivery Me thod Room Air Oxygen Flow Rate Fraction of Inspir ed Oxygen Hydration adequate: Yes Nausea and vomiting: No Pain level: 2 Mental status: Baseline
[2021-11-09] MEDS: prenatal vitamin Capsule 1 CAP PO (09:30)
[2021-11-09] MEDS: ibuprofen 800 mg tablet PO ×3 (09:30→21:10)
[2021-11-09] MEDS: docusate sodium 100 mg Capsule PO ×2 (09:30→21:11)
[2021-11-10 04:03] VITALS: BP 110/74; PULSE 77; RESP 18; TEMP 36.5; O2SAT 99
[2021-11-10] MEDS: prenatal vitamin Capsule 1 CAP PO (09:04)
[2021-11-10] MEDS: ibuprofen 800 mg tablet PO ×3 (09:04→20:11)
[2021-11-10] MEDS: docusate sodium 100 mg Capsule PO ×2 (09:04→20:11)
[2021-11-10 09:10] VITALS: BP 120/76; PULSE 86; RESP 16; TEMP 36.6; O2SAT 98
[2021-11-10 10:12] LABS: Basophils # 0.1 10^3/uL (0.0-0.1); Basophils % 0.7 %; Eosinophils # 0.2 10^3/uL (0.0-0.8); Eosinophils % 2.2 %; Hematocrit 30.3 % (37.0-47.0); Hemoglobin 9.1 g/dL (11.5-15.3); Lymphocytes # 1.7 10^3/uL (0.8-4.8); Lymphocytes % 19.1 %; Mean Corpuscular Hemoglobin 28.8 pg (28.0-34.0); Mean Corpuscular Volume 95.9 fl (81-99); Monocytes # 0.5 10^3/uL (0.2-0.9); Monocytes % 5.9 %; Neutrophils # 6.54 10^3/uL (1.8-7.7); Neutrophils % 71.7 %; Nucleated Red Blood Cells % 0 %; Platelet Count 220 10^3/cmm (130-400); Red Blood Count 3.16 10^6/uL (4.1-5.3); Red Cell Distribution Width 12.9 % (12.1-15.1); White Blood Count 9.1 10^3/uL (4.0-10.0)
--- NOTE | 2021-11-10 16:50 | PM.OBGYDC ---
Discharge Providers BLANKET WASHER Date of Admission: 11/04/21 Date of Discharge: 11/10/21 Attending Provider at Admission: Sophia Gomes DO Attending Provider at Discharge: Sophia Gomes DO Primary Care Provider: Sophia Gomes DO Diagnoses at Discharge Discharge Diagnosis (1) Vacuum-assisted vaginal delivery: Status: Acute (2) Gestational hypertension: Status: Acute Reason for Visit Reason for Visit: CONTRACTIONS Hospital Course Hospital Course Patient admitted on 11/04/21 for labor. Progressed with pitocin augmentation to /-3 with then arrest of dilation. Following given 2 doses cytotec without progressive dilation or increase in contractions. FHT remained Category 1 and with no immediate indication for delivery given rest period. On 11/07/21 at approx 6pm given dose cytotec with progressive dilation to /-3 noted. Started on low-dose pitocin following with initiation of regular contractions. AROM at approx 0730 on 11/08/21. Delivery:?? Patient progressed to complete. Patient placed in lithotomy position. Patient pushed with good but ultimately inadequate effort. After approx 4 hours in second stage of labor and slow progression to +3 station discussed vacuum assisted delivery. At this time patient declined vacuum after discussion of risks and benefits. Per patient preference continued with active pushing with FHT remaining Category 1 throughout. After approx 2 additional hours in second stage of labor with progression to +5 station, patient agreed to vacuum assisted delivery due to maternal fatigue. FHT continued to be Category 1. Vacuum applied and head delivered in TIMI position on second pull after 1 pop-off and total vacuum application time <10 minutes. Nuchal cord was present and reduced. Shoulders and rest of body delivered- body cord reduced-without difficulty over epidural anesthesia. Mouth and nares bulb suctioned. Cord clamped and cut after 1 minute delay. Infant placed on maternal abdomen. Placenta spontaneously delivered spontaneously and intact. Pitocin started after delivery of . Fundus noted to be moderately firm with boggy lower uterine segment. Noted to have moderate bleeding. Given 600 mcg cytotec sublingual and initiated bimanual massage. 2nd bag of 30 units pitocin given. Bleeding noted to decrease. The vagina and cervix were inspected and two 1st degree bilateral vaginal sulcus lacerations were noted. Right 1st degree lesion noted to be bleeding- repaired with 3-0 vicryl and 2% lidocaine for anesthesia of approx 6ml with adequate hemostasis noted following. Uterine fundus was noted to be firm and bleeding noted to stop. Male born at 17:21 with Apgars 7/8 weighing 7lbs 1oz and measuring 20.75 inches in length Placenta noted to be intact with centrally inserted umbilical cord. Complications: Maternal none ? Infant none Patient then with routine course. Hemoglobin decreased from admission at 12.5 >>9.0>>9.1 prior to discharge. Bleeding decreased and was minimal prior to discharge. Started on daily iron supplement. Pain well controlled, ambulating well, tolerating normal diet, voiding and stooling well. Exclusively well. VSS with only few mild range elevated BPs . Follow-up in 2 and 6 weeks at [facility] with Dr. Gomes. Reviewed pre-eclampsia, hemorrhage, and infection precautions/signs/symptoms. Pelvic rest for 6 weeks. Information Peripartum Data: Delivery Method: Vaginal Physical Exam Const: COMMON NORMALS: no acute distress, patient oriented x3, healthy appearing and well nourished GENERAL APPEARANCE: cooperative and comfortable Resp: COMMON NORMALS: normal respiratory effort and clear to auscultation bilaterally AUSCULTATION: clear to auscultation bilaterally Cardio: COMMON NORMALS: regular rate, regular rhythm, S1 normal heart sound present, S2 normal heart sound present and Peripheral pulses 2+ throughout RATE: regular rate RHYTHM: regular rhythm HEART SOUNDS: S1 normal heart sound present and S2 normal heart sound present PERIPHERAL PULSES: Peripheral pulses 2+ throughout GI: COMMON NORMALS: Soft to palpation and non-tender PALPATION: Yes Soft to palpation : OTHER: Uterine fundus firm and below umbilicus Extremity: COMMON NORMALS: normal to inspection and no calf tenderness NARRATIVE EXTREMITY EXAM: trace LE non-pitting edema Neuro: COMMON NORMALS: patient oriented x3 History History History 1 Term 1 0 Miscarriages/Ectopic 0 Living Children 0 Other History: Discharge Data Studies Completed and Pending Laboratory Results WBC 9.1 10^3/uL (4.0-10.0) 11/10/21 09:45 RBC 3.16 10^6/uL (4.1-5.3) L 11/10/21 09:45 Hgb 9.1 g/dL (11.5-15.3) L 11/10/21 09:45 Hct 30.3 % (37.0-47.0) L 11/10/21 09:45 MCV 95.9 fl (81-99) D 11/10/21 09:45 MCH 28.8 pg (28.0-34.0) 11/10/21 09:45 MCHC 30.0 g/dL (30.0-36.0) D 11/10/21 09:45 RDW 12.9 % (12.1-15.1) 11/10/21 09:45 Plt Count 220 10^3/cmm (130-400) 11/10/21 09:45 MPV 12.0 fL (7.4-10.4) H 11/10/21 09:45 Neut % (Auto) 71.7 % 11/10/21 09:45 Lymph % (Auto) 19.1 % 11/10/21 09:45 [place] % (Auto) 5.9 % 11/10/21 09:45 Eos % (Auto) 2.2 % 11/10/21 09:45 Baso % (Auto) 0.7 % 11/10/21 09:45 Neut # (Auto) 6.54 10^3/uL (1.8-7.7) 11/10/21 09:45 Lymph # (Auto) 1.7 10^3/uL (0.8-4.8) 11/10/21 09:45 [place] # (Auto) 0.5 10^3/uL (0.2-0.9) 11/10/21 09:45 Eos # (Auto) 0.2 10^3/uL (0.0-0.8) 11/10/21 09:45 Baso # (Auto) 0.1 10^3/uL (0.0-0.1) 11/10/21 09:45 Nucleated RBC % (auto) 0 % 11/10/21 09:45 Nucleated RBCs # 0.0 /100WBC 11/10/21 09:45 Sodium 133 mmol/L (136-145) L 11/04/21 15:07 Potassium 3.9 mmol/L (3.5-5.1) 11/04/21 15:07 Chloride 98 mmol/L (98-107) 11/04/21 15:07 Carbon Dioxide 23 mmol/L (22-29) 11/04/21 15:07 Anion Gap 15.9 (5-19) 11/04/21 15:07 BUN 11 mg/dL (6-20) 11/04/21 15:07 Creatinine 0.8 mg/dL (0.5-0.9) 11/04/21 15:07 GFR Calculation 90.5 mL/min (90-130) 11/04/21 15:07 Glucose 104 mg/dL (65-115) 11/04/21 15:07 Calculated Osmolality 276 mOsm/kg (285-295) L 11/04/21 15:07 Uric Acid 5.7 mg/dL (2.4-5.7) 11/04/21 15:07 Calcium 9.0 mg/dL (8.5-10.5) 11/04/21 15:07 Total Bilirubin 0.2 mg/dL (0.15-1.2) 11/04/21 15:07 AST 13 U/L (0-32) 11/04/21 15:07 ALT 9 U/L (0-33) 11/04/21 15:07 Alkaline Phosphatase 128 U/L (35-105) H 11/04/21 15:07 Total Protein 6.9 g/dL (6.6-8.7) 11/04/21 15:07 Albumin 3.4 g/dL (3.5-5.2) L 11/04/21 15:07 Globulin 3.5 g/dL (1.3-4.6) 11/04/21 15:07 Urine Color Yellow (Yellow) 11/04/21 14:30 Urine Appearance Hazy (CLEAR) A 11/04/21 14:30 Urine pH 6 (5-7) 11/04/21 14:30 Ur Specific [place] 1.020 (1.005-1.030) 11/04/21 14:30 Urine Protein Trace (Negative) 11/04/21 14:30 Urine Glucose (UA) Norm (Normal) 11/04/21 14:30 Urine Ketones 1+ (Negative) H 11/04/21 14:30 Urine Blood Neg (Negative) 11/04/21 14:30 Urine Nitrate Negative (Negative) 11/04/21 14:30 Urine Bilirubin Neg (Negative) 11/04/21 14:30 Urine Urobilinogen Norm mg/dL (Negative) 11/04/21 14:30 Ur Leukocyte Esterase 1+ (Negative) H 11/04/21 14:30 Urine RBC 0-4 /hpf (0-2) H 11/04/21 14:30 Urine WBC 25-40 /hpf (0-5) H 11/04/21 14:30 Ur Squamous Epith Cells 15-25 /hpf (0-5) H 11/04/21 14:30 Amorphous Sediment Not Reportable 11/04/21 14:30 Urine Bacteria None /hpf (NONE) 11/04/21 14:30 U Random Total Protein 42 mg/dL 11/04/21 14:30 Urine Creatinine 227 mg/dL (28-217) H 11/04/21 14:30 Protein/Creatinin Ratio 0.19 mg/mg CR 11/04/21 14:30 Vitals Last Vital Signs Temp 97.9 F 11/10/21 09:10 Pulse 86 11/10/21 09:10 Resp 16 11/10/21 09:10 BP 120/76 11/10/21 09:10 Pulse Ox 98 11/10/21 09:10 O2 Del Method 11/10/21 09:10 Discharge Plan Discharge Patient Disposition: Home Condition: Stable Prescriptions: New ferrous sulfate 325 mg (65 mg iron) Tablet,Delayed Release (Dr/Ec) 325 mg PO DAILY Qty: 90 0RF ibuprofen 800 mg Tablet 800 mg PO TID Qty: 60 0RF Continued prenat.vits,ascencion,[id number] Tablet 1 tab PO DAILY Discontinued aspirin 81 mg Tablet,Chewable 81 mg PO DAILY Discharge Orders: Discharge Order (Routine); Ordered 11/10/21 Ordered By: Sophia Gomes Referrals: Sophia Gomes DO [Primary Care Provider] - 11/24/21 8:45 am (Your [address] Gomes is December 21, 2021 at 10:30 a.m.) Discharge Diet: Regular Discharge Activity: Resume usual activity Patient Instructions: Lanolin (On the skin) (Lansinoh For Breast Feeding Mothers,..., Depression (DC), Perineal Care (DC), Expression, Collection and Storage of Breast Milk (DC), and Nipple Soreness (DC), and Breast Engorgement (DC), and Plugged Ducts (DC), How to Increase Your Milk Supply (DC), Preeclampsia and Eclampsia After Delivery (GEN), Vaginal Delivery (DC), Breast Care for the Mother (DC), OB Discharge Report, OB Anesthesia Instructions, OB Food/Drug Interaction Guide, OB Care at Home, Opioid Safety, Abnormal Bleeding Activity Restrictions/Additional Instructions: Pelvic rest for 6 weeks. Follow-up in 2 and 6 weeks for care with Dr. Gomes. Discharge Attestations BLANKET WASHER Time Spent in Discharge Care*: greater than 30 min Coding Level of Care Code Acute Glass Mould Cleaner for Chg Fwd Diagnoses Vacuum-assisted vaginal delivery Z37.9 Gestational hypertension O13.9
[2021-11-10 17:00] VITALS: BP 120/75; PULSE 68; RESP 16; TEMP 36.7; O2SAT 98
[2021-11-10 20:15] VITALS: BP 119/78; PULSE 96; RESP 16; TEMP 36.6
== END 2021-11-10 20:20 | disposition home or self-care (01) | DRG 806 ==
LOC: OBGYN 11-07 14:24
PROVIDERS: Admitting Provider Family Medicine; PCP Family Medicine; Visit Provider Family Medicine
DX: O60.23X0 Term delivery with preterm labor, third trimester, not applicable or unspecified (principal); O71.4 Obstetric high vaginal laceration alone; Z37.0 Single live birth; R71.0 Precipitous drop in hematocrit; O13.4 Gestational [pregnancy-induced] hypertension without significant proteinuria, complicating childbirth; O63.1 Prolonged second stage (of labor); O66.5 Attempted application of vacuum extractor and forceps; O99.214 Obesity complicating childbirth; E66.01 Morbid (severe) obesity due to excess calories; O69.81X0 Labor and delivery complicated by cord around neck, without compression, not applicable or unspecified; O90.89 Other complications of the puerperium, not elsewhere classified; Z3A.36 36 weeks gestation of pregnancy; Z3A.00 Weeks of gestation of pregnancy not specified
CPT/HCPCS: 12345; 36415; 59025; 59409; 80053; 81001; 82570; 84156; 84550; 85025; 85027; 99211; J2405; J2795; J3010

== ENCOUNTER 2024-01-07 13:37 | Outpatient (CLI) | payer OTHER, MEDICAID, SELFPAY ==
--- NOTE | 2024-01-07 13:43 | USCV_ITS ---
ElleMary Ann booker Age: 23 Gender: F : 2000 Exam Date: 01/07/2024 13:57 Ordering Phys: Sophia Gomes DO Technologist: CT Exam Location: [facility] – [place]_ Indication: PROCEDURES: Venous duplex imaging was performed in only the right lower extremity. On the right side, the common femoral, superficial femoral, profunda femoral, popliteal, posterior tibial, greater saphenous veins and the peroneal trunk were identified and interrogated in the standard fashion. These veins were found to be easily compressible with spontaneous blood flow. No evidence of insufficiency or thrombus noted. FINDINGS: no dvt CONCLUSIONS No evidence of right lower extremity DVT. Davis Michelle MD (Electronically Signed) Final Date: 08 January 2024 09:24 S
== END 2024-01-07 13:38 | disposition home or self-care (01) ==
PROVIDERS: PCP Family Medicine; Visit Provider Family Medicine
DX: M79.661 Pain in right lower leg (principal)
CPT/HCPCS: 93971

== ENCOUNTER 2024-01-08 16:09 | Outpatient (CLI) | payer OTHER, MEDICAID, SELFPAY ==
--- NOTE | 2024-01-08 16:20 | XRR_ITS ---
PROCEDURE INFORMATION: Exam: XR Lumbosacral Spine Exam date and time: 01/08/2024 4:38 PM Age: 23 years old Clinical indication: Low back pain; Patient HX: Lower back pain that radiates to hips and down right leg; Additional info: Back pain, low TECHNIQUE: Imaging protocol: Radiologic exam of the lumbosacral spine. Views: 6 or more views. Including flexion and extension views. COMPARISON: No relevant prior studies available. FINDINGS: Bones/joints: Normal. No acute fracture. Normal alignment. Soft tissues: Unremarkable. XR/XR lumbar spine 6V w f/e [id number] IMPRESSION: No abnormal findings.
== END 2024-01-08 16:10 | disposition home or self-care (01) ==
LOC: RAD 16:11
PROVIDERS: PCP Family Medicine; Visit Provider Family Medicine
DX: M54.50 Low back pain, unspecified (principal)
CPT/HCPCS: 72114

== ENCOUNTER → 2024-06-05 11:13 | Outpatient (BNVA) | payer OTHER, MEDICAID, SELFPAY | PROVIDERS: PCP Family Medicine; Visit Provider Emergency Medicine | DX: M25.571 Pain in right ankle and joints of right foot (principal) | CPT/HCPCS: 73610 ==

== ENCOUNTER → 2024-10-20 06:55 | Outpatient (BNVA) | payer OTHER, MEDICAID, SELFPAY | PROVIDERS: PCP Family Medicine; Visit Provider Family Medicine | DX: Z13.6 Encounter for screening for cardiovascular disorders (principal); R53.83 Other fatigue; E66.01 Morbid (severe) obesity due to excess calories; Z76.89 Persons encountering health services in other specified circumstances | CPT/HCPCS: 80053; 80061; 84443; 85025 ==